=== PATIENT | male | born 1950 | race Caucasian/White ===

== ENCOUNTER 2019-04-26 12:07 | Inpatient (IN) ==
[2019-04-26] MEDS ORDERED: MORPHINE IV ONE ×2 (12:35→13:30)
--- NOTE | 2019-04-26 12:53 | PROVIDER DOCUMENTATION ---
HPI-Musculoskeletal Pain/Inj - GENERAL Chief Complaint: Hip Injury Stated Complaint: FALL Time Seen by Provider: 04/26/19 12:21 Source: patient - HX OF PRESENT ILLNESS-MUSKULOSKELTAL Nature of Presenting Problem: 68 yr old M, hx of HTN, presents after a fall off of a ladder - missed two rungs, landed on his left hip. Is currently unable to lift or move the left extremity due to pain. Pt denies LOC or striking any other part of his body on the ground. Quality of Pain: reports: sharp Severity in ED: severe Onset/Duration: 1 hour ago Timing: still present Locality of Occurance: Work Review of Systems - Adult - REVIEW OF SYSTEMS - ADULT Constitutional: reports: no symptoms reported Eyes: reports: no symptoms reported Ears, Nose, Mouth & Throat: reports: no symptoms reported Cardiovascular: reports: no symptoms reported Respiratory: reports: no symptoms reported Gastrointestinal: reports: no symptoms reported Genitourinary: reports: no symptoms reported Musculoskeletal: reports: joint pain Integumentary: reports: no symptoms reported Neurological: reports: no symptoms reported Psychiatric: reports: no symptoms reported Past History - Adult - PAST MEDICAL HISTORY-ADULT Review of Records: reports: Nursing Assessment Review Major Childhood Illnesses: reports: denies history Cardiovascular: reports: HTN, hyperlipidemia Respiratory: reports: denies history Gastrointestinal: reports: denies history Obstetrical/Gynecological: reports: denies history Genitourinary: reports: denies history Musculoskeletal: reports: denies history Neurological: reports: denies history Endocrine/Immune: reports: denies history Other Conditions: reports: denies history - PRIOR SURGERIES/PROCEDURES Surgical/Procedure History: reports: orthopedic (extremity) (right knee, pelvic fracture) - IMMUNIZATION STATUS Childhood Immunizations: See Nurse Assessment Flu Vaccine: See Nurse Assessment - FAMILY HISTORY Family History: reviewed, not pertinent Physical Exam-Injury Related - Physical Exam-Injury Related Initial Vital Signs Reviewed: Yes General Appearance: alert, mild distress Eyes: PERRL/EOMI Head, Ears, Nose, Mouth & Throat: normocephalic/atraumatic Respiratory: lungs clear, normal breath sounds Cardiovascular: regular rate, rhythm Extremity: other (no obvious deformity, wound or abrasion of the left lower extremity noted, pt is tender upon palpation of the hip and the knee) Integumentary: warm/dry Neurologic: no motor/sensory deficits Psych/Mental Status: normal mood/affect, oriented x 3 - Glascow Coma Score Best Eye Response ([place]): (4) open spontaneously Best Verbal Response ([place]): (5) oriented Best Motor Response ([place]): (6) obeys commands Progress - PLAN OF CARE/RESULTS Progress/Plan/Lab Results: Vital Signs - 8 hr 04/26/19 12:22 04/26/19 12:28 04/26/19 14:03 Temperature 97.8 F Pulse Rate 73 72 84 Respiratory Rate 22 24 18 Blood Pressure 138/77 138/77 131/74 O2 Sat by Pulse Oximetry 100 100 100 04/26/19 14:39 04/26/19 15:02 Temperature Pulse Rate 78 71 Respiratory Rate 15 17 Blood Pressure 131/74 111/57 O2 Sat by Pulse Oximetry 98 96 Laboratory Results - last 24 hr 04/26/19 04/26/19 04/26/19 13:36 13:36 13:36 WBC 15.53 H RBC 4.97 Hgb 13.9 L Hct 42.4 MCV 85.3 MCH 28.0 MCHC 32.8 L RDW Std Deviation 13.9 Plt Count 253 MPV 10.6 H Immature Gran % (Auto) 0.4 Neut % (Auto) 80.2 H Lymph % (Auto) 14.1 L [place] % (Auto) 4.9 Eos % (Auto) 0.2 Baso % (Auto) 0.2 Immature Gran # (Auto) 0.06 H Neut # (Auto) 12.46 H Lymph # (Auto) 2.19 [place] # (Auto) 0.76 H Eos # (Auto) 0.03 Baso # (Auto) 0.03 PT INR PTT (Actin FS) Sodium 135 L Potassium 3.8 Chloride 97 L Carbon Dioxide 21 L Anion Gap 17 BUN 18 Creatinine 1.1 Estimated GFR/1.73 m2 > 60 BUN/Creatinine Ratio 16 Glucose 107 H Calculated Osmolality 272 Calcium 9.1 Total Bilirubin 0.50 AST 21 ALT 16 Alkaline Phosphatase 86 Creatine Kinase 153 Troponin T Total Protein 7.8 Albumin 4.5 Globulin 3.3 Albumin/Globulin Ratio 1.4 04/26/19 04/26/19 04/26/19 13:36 13:36 13:36 WBC RBC Hgb Hct MCV MCH MCHC RDW Std Deviation Plt Count MPV Immature Gran % (Auto) Neut % (Auto) Lymph % (Auto) [place] % (Auto) Eos % (Auto) Baso % (Auto) Immature Gran # (Auto) Neut # (Auto) Lymph # (Auto) [place] # (Auto) Eos # (Auto) Baso # (Auto) PT 13.1 INR 0.98 PTT (Actin FS) 28.8 Sodium Potassium Chloride Carbon Dioxide Anion Gap BUN Creatinine Estimated GFR/1.73 m2 BUN/Creatinine Ratio Glucose Calculated Osmolality Calcium Total Bilirubin AST ALT Alkaline Phosphatase Creatine Kinase Troponin T < 0.010 Total Protein Albumin Globulin Albumin/Globulin Ratio Orders Category Date Time Status CT PELVIS W/O CONTRAST [CT] Stat Exams 04/26/19 12:38 Completed HIP W/PELVIS BILAT 2 VIEWS [RAD] Stat Exams 04/26/19 12:34 Completed KNEE 3 VIEWS LEFT [RAD] Stat Exams 04/26/19 12:38 Completed CBC WITH ELECTRONIC DIFF [HEME] Stat Lab 04/26/19 13:36 Completed CK PROFILE [SP CHEM] Stat Lab 04/26/19 13:36 Completed CMP [COMPREHENSIVE METABOLIC PANEL] [CHEM] Stat Lab 04/26/19 13:36 Completed PROTIME WITH INR [COAG] Stat Lab 04/26/19 13:36 Completed PTT [COAG] Stat Lab 04/26/19 13:36 Completed TROPONIN T Stat Lab 04/26/19 13:36 Completed Hydromorphone [Dilaudid] Med 04/26/19 15:28 Discontinued 2 mg IV NOW ONE Morphine Med 04/26/19 13:30 Discontinued 4 mg IV NOW ONE X-Ray and CT confirm displaced subcapital femoral neck fracture. Spoke with ANTOLIN Fall with Dr. Shah. Will consult on the pt; admit to hospitalist. Spoke to ANTOLIN Montalvo for hospitalist for admission. Pt and family made aware at bedside. Result Diagrams: 04/26/19 13:36 04/26/19 13:36 - XRAY 1 XRAY Study: Pelvis, Hip Impression: See EMR Report XRAY Interpretation: left subcapital femoral neck fracture, minimally displaced - CT/MRI 1 CT Study: Pelvis (left subcapital fracture of femoral neck) Impression: See EMR Report - CONSULTS/PCP/HOSPITALIST Notification #1 *Consult/PCP/Hospitalist*: Katia Time Discussed: 15:00 Consult Disposition: Admit Departure - Departure Date of Disposition Decision: 04/26/19 Time of Disposition Decision: 15:27 DIAGNOSIS: Left displaced femoral neck fracture Disposition: ADMITTED INPATIENT 09 Certified Medical Emergency: Emergent Condition: Fair Referrals and Follow-Ups: Mendoza Anderson MD [ACTIVE STAFF PHYSICIAN] - - Critical Care Note This patient required my direct & personal management of CC.: No Attestation - Physician/ AARON Attestation Patient care was provided by Advanced Practice Provider:: No The physician spent face to face time with patient:: Yes Advanced Practice Provider documentation review:: Supervising physician onsite and consulted in the evaluation and care of this patient. The physician did have a face to face encounter with the patient.
--- NOTE | 2019-04-26 13:05 | Diag Imaging Result Doc PS360 ---
KNEE 3 VIEWS LEFT - 04/26/2019 INDICATION: trauma TECHNIQUE: Three views COMPARISON: None FINDINGS: Bones are intact and normally aligned. Joint spaces and soft tissues are clear. IMPRESSION: Negative exam. Electronically signed by Jayy Hewitt 04/26/2019 1:03 PM
--- NOTE | 2019-04-26 13:07 | Diag Imaging Result Doc PS360 ---
HIP W/PELVIS BILAT 2 VIEWS - 04/26/2019 INDICATION: hip trauma TECHNIQUE: Three views COMPARISON: None FINDINGS: There is a minimally displaced subcapital left femoral neck fracture. No dislocation. The right hip is intact, although there is contour expansion of the superior proximal femur which may relate to cam-type femoral acetabular impingement. There is a fusion plate at the symphysis pubis. IMPRESSION: Displaced subcapital left femoral neck fracture. Electronically signed by Jayy Hewitt 04/26/2019 1:05 PM
--- NOTE | 2019-04-26 13:23 | Diag Imaging Result Doc PS360 ---
CT PELVIS W/O CONTRAST - 04/26/2019 INDICATION: trauma COMPARISON: X-rays from earlier FINDINGS: There is a displaced subcapital left hip fracture. No other fractures. There is a fusion plate at the symphysis pubis. Mild degeneration of the sacroiliac joints. IMPRESSION: Displaced subcapital left hip fracture. This exam was performed using automated exposure control, adjustment of mA or kV according to patient size, and/or use of iterative reconstruction technique Electronically signed by Jayy Hewitt 04/26/2019 1:21 PM
[2019-04-26 14:11] LABS: BASO# 0.03 X1000 (0.0-0.2); BASO% 0.2 % (0.0-0.8); EOS# 0.03 X1000 (0.0-0.7); EOS% 0.2 % (0.0-10.0); HEMATOCRIT 42.4 % (42.0-52.0); HEMOGLOBIN 13.9 g/dL (14.0-18.0); IMM GRAN# 0.06 X1000 (0.0-0.04); IMM GRAN% 0.4 % (0.0-0.5); LYMPH# 2.19 X1000 (1.2-3.4); LYMPH% 14.1 % (20.5-51.1); MCHC 32.8 g/dL (33-37); MCV 85.3 FL (81-99); MONO# 0.76 X1000 (0.11-0.59); MONO% 4.9 % (1.7-9.3); MPV 10.6 FL (7.4-10.4); NEUT# 12.46 X1000 (1.4-6.5); NEUT% 80.2 % (42.2-75.2); PLT 253 X1000 (130-400); RBC 4.97 XMIL (4.7-6.1); RDW 13.9 % (11.5-14.5); WBC 15.53 X1000 (4.8-10.8)
[2019-04-26 14:14] LABS: INR 0.98; PROTIME 13.1 Seconds (11.0-16.0)
[2019-04-26 14:26] LABS: AGAP 17; ALB/GLOB RATIO 1.4; ALBUMIN 4.5 g/dL (3.5-5.0); ALKALINE PHOSPHATASE 86 U/L (32-122); BUN 18 mg/dL (8-22); CALCIUM 9.1 mg/dL (8.8-10.2); CHLORIDE 97 mmol/L (98-107); COSMO 272; CREATININE 1.1 mg/dL (0.7-1.2); ESTIMATED GFR > 60; GLUCOSE 107 mg/dL (70-104); GOT 21 U/L (10-34); GPT 16 U/L (10-44); POTASSIUM 3.8 mmol/L (3.5-5.1); SODIUM 135 mmol/L (136-145); TCO2 21 mmol/L (25-35); TOTAL PROTEIN 7.8 g/dL (6.3-8.3)
[2019-04-26] MEDS ORDERED: DILAUDID IV ONE (15:28)
[2019-04-26] MEDS ORDERED: ZOFRAN IV PRN (16:34)
[2019-04-26] MEDS ORDERED: TYLENOL PO PRN (16:34)
--- NOTE | 2019-04-26 16:59 | Diag Imaging Result Doc PS360 ---
EXAM: CHEST-PORTABLE HISTORY: r/o pna TECHNIQUE: Chest single view COMPARISON: 04/01/2018 FINDINGS: The lungs are well expanded. The heart is not enlarged. The vessels are not distended. There are no infiltrates. No effusion identified. IMPRESSION: No pneumonia Electronically signed by Reagan Díaz 04/26/2019 4:57 PM
[2019-04-26] MEDS: DILAUDID IV PRN ×3 (17:22→23:29)
[2019-04-26 17:23] LABS: URINE SOURCE CATH
[2019-04-26 17:26] LABS: BILIRUBIN URINE NEGATIVE (NEGATIVE); BLOOD URINE NEGATIVE (NEGATIVE); COLOR YELLOW; GLUCOSE URINE NEGATIVE (NEGATIVE); KETONE URINE 20 mg/dL (NEGATIVE); LEUKOCYTES URINE NEGATIVE (NEGATIVE); NITRITE URINE NEGATIVE (NEGATIVE); PROTEIN URINE NEGATIVE (NEGATIVE); SP GRAVITY URINE 1.014; TURBIDITY URINE CLEAR (CLEAR); UR EPITHELIAL CELLS <10 /HPF (<10); URINE BACTERIA NEGATIVE /HPF; URINE RBC <10 /HPF (<10); URINE WBC <10 /HPF (<10); UROBILINOGEN URINE NORMAL (NORMAL)
[2019-04-26] MEDS: NS 1,000 ML IV SCH (18:42)
--- NOTE | 2019-04-26 19:04 | ORTHOPAEDICS CONSULTATION ---
DATE: 04/26/2019 REASON FOR CONSULTATION: Left displaced femoral neck fracture. HISTORY OF PRESENT ILLNESS: The patient was at work today and he fell off a ladder after he missed the last 2 rungs. He fell on his left hip and had complaints of pain in that area since. He denies any other injuries from the fall. He was evaluated in the Emergency Room where imaging and labs were obtained. We were consulted due to findings of a displaced femoral neck fracture. 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 The plate in his pelvis is from a fracture in 1995 and became infected last year. No surgical intervention was needed for the infection but he does take Keflex b.i.d. per Infectious Disease for an indefinite period. PAST SURGICAL HISTORY: Repair of pelvic fracture in 1995, cervical fusion in 2017, and knee arthroscope in 2015. SOCIAL HISTORY: None. MEDICATIONS: 1. Vasotec 10 mg daily. 2. HCTZ 25 mg daily. 3. Pravastatin 20 mg q.h.s.. 4. Keflex 500 mg q.12h. REVIEW OF SYSTEMS: The patient specifically denied any weakness, fever. 1. Cardiovascular: He denies any chest pain or heart palpitations. 2. Respiratory: He denies any shortness of breath or difficulty breathing. 3. Abdomen: He denies any constipation or abdominal pain. 4. Musculoskeletal: Positive for left hip pain. Denies any other joint pain. 5. Integumentary: He denies any rashes or wounds. 6. Mental Health: He denies any anxiety or depression. PHYSICAL EXAMINATION: GENERAL: The patient is resting comfortably in bed at this time. His family is at bedside. EXTREMITIES: He has tenderness to palpation over his left hip, though there is no obvious deformity. There is no bruising noted. There is no swelling appreciated. The patient's calves are soft. He does have full range of motion of his feet and toes. Sensation is intact distally to his injury. He is neurovascularly intact. IMAGING: X-rays were obtained in the ER and revealed a left displaced femoral neck fracture. He also had a CT done, which revealed a displaced, subcapital left hip fracture. LABORATORY DATA: Significant for WBC of 15.5, hemoglobin and hematocrit within normal limits at 13 and 42 respectively. Creatinine is 1.1. ASSESSMENT: A left displaced femoral neck fracture. PLAN: We will do a left hemiarthroplasty once the patient is medically cleared. We will allow him to eat tonight and we will plan on taking him to surgery when available. Risks and benefits were explained by Dr. Shah with both the patient and his family at bedside. All questions were answered. Dictated by KUSHAL Kat for Elijah Shah MD cc: Elijah Shah MD [facility]
[2019-04-26] MEDS: PRAVACHOL PO SCH (20:25)
[2019-04-26] MEDS ORDERED: KEFLEX PO SCH (21:00)
--- NOTE | 2019-04-27 02:05 | HISTORY AND PHYSICAL ---
PRIMARY CARE PROVIDER: Edmar Denis DO CHIEF COMPLAINT: Fall with left hip pain. HISTORY OF PRESENT ILLNESS: Mr. Franky Kuo is a 68-year-old male with a medical history of hypertension, dyslipidemia, chronic neck pain and scrotal cellulitis that he is on cephalexin for life, who is here after a 2 foot fall from a ladder where he missed a step. He landed on his left hip, imaging reveals that he has a displaced subcapital left hip fracture, and orthopedic surgery has been consulted. Past surgical history. PAST MEDICAL HISTORY: 1. Hypertension. 2. Dyslipidemia. 3. Chronic neck pain. 4. Scrotal cellulitis that is resolved, but will be on cephalexin for the rest of his life. SURGICAL HISTORY: 1. Right knee surgery that was scoped. 2. Neck surgery. 3. Pelvic fracture with plate in the past. SOCIAL HISTORY: Chews 1 can of tobacco a day. No smoking. Denies alcohol or illicit drug use. is at the bedside. He works for [employer]. FAMILY HISTORY: The patient's mother had hypertension and CAD. The patient's father of an MO at the age of 74, he also had hypertension. ALLERGIES: Latex. HOME MEDICATIONS: 1. He is on cephalexin 500 mg p.o. twice daily for life. 2. Enalapril-hydrochlorothiazide 10-25 one tablet p.o. daily. 3. Pravastatin 20 mg p.o. nightly. REVIEW OF SYSTEMS: Fourteen point review of systems are complete and all were negative except for those mentioned above in the HPI. PHYSICAL EXAMINATION: VITAL SIGNS: Temperature 97.8 degrees, heart rate 71, respiratory rate 17, blood pressure 111/57, O2 saturation 96% on room air. GENERAL: Mr. Franky Kuo is a 68-year-old male. He is in mild acute distress with that left hip pain that is causing severe pain, but he is able answer questions appropriately. HEENT: Atraumatic, normocephalic. Pupils are equal, round and reactive to light. Extraocular movements intact. Mucous membranes are dry. NECK: Trachea is midline. CARDIOVASCULAR: S1, S2. Regular rate and rhythm. No rubs, gallops or murmurs. No lower extremity edema. Plus 2 dorsalis and radial pulses. Negative JVD or carotid bruits. PULMONARY: Clear to auscultation. Bilateral breath sounds. No accessory muscle use or work of breathing noted. GI: Soft, nontender, nondistended. Positive bowel sounds x4. EXTREMITIES: Moves extremities equally except for the left lower extremity, which he is unable to move at all and it is rotated. NEUROLOGIC: A and O x3. Follows commands. Sensory is intact. SKIN: Warm, dry, intact. LABORATORY DATA: White blood cell is 15,000, hemoglobin 13, hematocrit 42, platelet count 253,000, INR 0.98, PTT is 28.8. Sodium 135, potassium 3.8, BUN 18, creatinine 2.1, glucose 107, calcium 9.1, bilirubin 0.50, AST 21, ALT 16, CK 153, troponin less than 0.01, albumin 4.5. Urinalysis 20 ketones. IMAGING: Hip and pelvic x-ray, displaced subcapital left femoral neck fracture. Pelvic CT, displaced subcapital left hip fracture. Knee x-ray negative exam. Chest x-ray no pneumonia. ASSESSMENT AND PLAN: 1. Displaced subcapital left femoral neck fracture status post traumatic fall. Dr. Shah has been consulted. The ER physicians states they spoke with him, will keep him n.p.o. for now. Dilaudid for pain control. 2. Hypertension. We will continue the enalapril-hydrochlorothiazide. 3. Dyslipidemia. Continue the pravastatin. 4. History of scrotal cellulitis, and currently has leukocytosis. He is on cephalexin 500 mg p.o. twice a day for life and we will continue that. Was followed by Dr. Anderson. 5. Deep venous thrombosis prophylaxis will be started as soon as he is out of surgery. Dictated by KUSHAL Knutson for Jasvir Trujillo MD cc: KUSHAL Knutson MD
[2019-04-27] MEDS: DILAUDID IV PRN ×5 (03:11→21:26)
[2019-04-27] MEDS: NS 1,000 ML IV SCH ×3 (05:11→15:47)
[2019-04-27 06:13] LABS: BASO# 0.02 X1000 (0.0-0.2); BASO% 0.2 % (0.0-0.8); EOS# 0.19 X1000 (0.0-0.7); EOS% 1.7 % (0.0-10.0); HEMATOCRIT 40.3 % (42.0-52.0); LYMPH# 1.96 X1000 (1.2-3.4); MCH 28.3 PG (27-31); MCHC 32.3 g/dL (33-37); MCV 87.6 FL (81-99); MONO# 0.72 X1000 (0.11-0.59); MONO% 6.6 % (1.7-9.3); MPV 10.4 FL (7.4-10.4); NEUT# 8.02 X1000 (1.4-6.5); NEUT% 73.5 % (42.2-75.2); PLT 210 X1000 (130-400); RDW 14.3 % (11.5-14.5); WBC 10.91 X1000 (4.8-10.8)
[2019-04-27 06:20] LABS: INR 1.18; PROTIME 15.2 Seconds (11.0-16.0)
[2019-04-27 06:21] LABS: PTT 34.1 Seconds (22.3-41.8)
[2019-04-27 06:36] LABS: AGAP 10; ALB/GLOB RATIO 1.2; ALBUMIN 3.7 g/dL (3.5-5.0); ALKALINE PHOSPHATASE 72 U/L (32-122); BUN 15 mg/dL (8-22); CALCIUM 8.4 mg/dL (8.8-10.2); CHLORIDE 102 mmol/L (98-107); COSMO 276; CREATININE 0.9 mg/dL (0.7-1.2); ESTIMATED GFR > 60; GLUCOSE 93 mg/dL (70-104); GOT 21 U/L (10-34); GPT 12 U/L (10-44); MAGNESIUM 1.4 mg/dL (1.5-2.7); SODIUM 138 mmol/L (136-145); TCO2 26 mmol/L (25-35); TOTAL BILIRUBIN 0.61 mg/dL (0.20-1.00); TOTAL PROTEIN 6.7 g/dL (6.3-8.3)
--- NOTE | 2019-04-27 07:24 | HISTORY AND PHYSICAL ---
ADDENDUM: I have seen and examined Mr. Kuo today. was at the bedside at the time of the encounter. Mr. Kuo presented to the ER today after he sustained a fall at work from a misstep coming down on a ladder. Hit on the concrete, was not able to get up, was brought into the emergency room. Was evaluated. X-ray of the pelvis suggests a displaced subcapital left femoral neck fracture. Mr. Kuo's past medical history includes hypertension, dyslipidemia, and cellulitis with an infection to a fusion plate at the symphysis pubis for which he is chronically on Keflex. He is currently denying any chest pain. No shortness of breath. He does not smoke. No history of diabetes and he is not on any blood thinner. His current physical exam is unremarkable except for the findings on the left lower extremity that is rotated and remarkably painful on exploration. I have reviewed his labs and also imaging studies. ASSESSMENT: 1. Status post mechanical fall resulting into a left subcapital displaced femoral neck fracture. The patient has been has been evaluated by orthopedics and there is a plan for a left hip arthroplasty tomorrow. 2. Hypertension controlled. 3. Dyslipidemia. 4. 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 PERIOPERATIVE EVALUATION: Mr. Kuo is a 68-year-old male whose only chronic medical condition is hypertension and dyslipidemia. Denies any acute disorder. Denies any chest pains or any shortness of breath. No signs of congestive heart failure and he is not on any chronic anticoagulation. He is pretty functional at baseline. He has sustained a left hip fracture and he is going for a total hemiarthroplasty tomorrow. We think Mr. Kuo is a low- to-moderate risk patient for a moderate nonvascular surgery. We think the surgery is very necessary to maintain functionality and we recommend surgery to proceed. Please refer to the details of the H and P which has been dictated by the CAR WRECKER in the chart. cc: Jasvir Trujillo MD
--- NOTE | 2019-04-27 08:33 | EKG Report ---
Test Performed on : 04/27/2019 08:02:44 AM Test Reason : preop Blood Pressure : / mmHG Vent. Rate : 062 BPM Atrial Rate : 062 BPM P-R Int : 158 ms QRS Dur : 096 ms QT Int : 402 ms P-R-T Axes : 060 057 032 degrees QTc Int : 408 ms Normal sinus rhythm. Normal ECG When compared with ECG of 28-FEB-2018 18:21, No significant change was found Confirmed by Hipolito Sunshine MD ([id number]) on 04/28/2019 7:44:25 AM
[2019-04-27] MEDS ORDERED: KEFZOL 1 GM/D5W 1 GM/50 ML IVPB IV ONE (09:04)
[2019-04-27] MEDS ORDERED: FLU VACCINE IM ONE (09:20)
[2019-04-27] MEDS: HYDROCHLOROTHIAZIDE PO SCH (09:38)
[2019-04-27] MEDS: VASOTEC PO SCH (09:38)
[2019-04-27] MEDS ORDERED: DIPRIVAN 1% ONE ×2 (11:18→12:19)
[2019-04-27] MEDS ORDERED: FENTANYL ONE ×2 (11:18→11:24)
[2019-04-27] MEDS ORDERED: ZOFRAN ONE (11:19)
[2019-04-27] MEDS ORDERED: DECADRON ONE (11:19)
[2019-04-27] MEDS ORDERED: XYLOCAINE-MPF 2% ONE (11:19)
--- NOTE | 2019-04-27 11:59 | ORTHOPAEDICS PROGRESS NOTE ---
DATE: 04/27/2019 SUBJECTIVE: The patient is a pleasant, 68-year-old male who is 1 day status post fall sustaining a left displaced femoral neck fracture. He has been in the hospital. Orthopedic consultation was requested. After reviewing films, recommendation to proceed with arthroplasty was offered. Orthopedic consultation requested. PHYSICAL EXAMINATION: Patient is awake, alert, and cooperative with examination. It appears left lower extremity is shortened and somewhat externally rotated. His compartments were soft. Expected tenderness to palpation. Tenderness with gentle movement. Active dorsiflexion plantar flexion. His WBC is 10.91, down from 15.53 on admission. His hemoglobin is 13.0. Hematocrit is 40.3. IMPRESSION: Left displaced femoral neck fracture. PLAN: At this point, discussed treatment options with the patient. At this time, we will plan on proceeding with surgical management later today. Risks of surgery were explained, including the risks of anesthesia, , bleeding, infection, failure to relieve pain, postop stiffness, nerve injury, blood clots, and other imponderables. Of note the patient does report he is on chronic p.o. Keflex for previous infections from pubic symphysis fixation. Patient did discuss the potential for increased possibility of infection given his history of previous infection from his pelvic surgery requiring chronic p.o. antibiotics. They understand. All of their questions were answered. cc: Elijah Shah MD
[2019-04-27] MEDS ORDERED: VERSED ONE (12:01)
[2019-04-27] MEDS ORDERED: SODIUM CHLORIDE 0.9% 10 ML ONE (12:10)
[2019-04-27] MEDS ORDERED: EPHEDRINE ONE (12:10)
[2019-04-27] MEDS ORDERED: NEO-SYNEPHRINE ONE (12:10)
[2019-04-27] MEDS ORDERED: ROBINUL ONE (12:25)
[2019-04-27] MEDS ORDERED: MAGNESIUM SULFATE 2 GM/S.W.I. 2 GM/50 ML IVPB IV ONE (12:27)
[2019-04-27] MEDS ORDERED: MORPHINE IV PRN (13:32)
[2019-04-27] MEDS ORDERED: ZOFRAN IV PRN (13:32)
[2019-04-27] MEDS ORDERED: MILK OF MAGNESIA PO PRN (13:32)
[2019-04-27] MEDS ORDERED: NS 1,000 ML ONE (13:36)
[2019-04-27] MEDS ORDERED: HALDOL IV PRN (13:45)
--- NOTE | 2019-04-27 13:52 | Diag Imaging Result Doc PS360 ---
XRAY HIP UNILATERAL LT - 04/27/2019 INDICATION: AP,lateral,pt in pacu TECHNIQUE: Two views COMPARISON: 04/26/2019 FINDINGS: There is been placement of a left femoral head prosthesis in good position. No hardware fracture or loosening. Alignment is anatomic. IMPRESSION: No complication. Electronically signed by Jayy Hewitt 04/27/2019 1:50 PM
--- NOTE | 2019-04-27 15:17 | OPERATIVE NOTE ---
PROCEDURE DATE: 04/27/2019 PREOPERATIVE DIAGNOSIS: Left displaced femoral neck fracture. POSTOPERATIVE DIAGNOSIS: Left displaced femoral neck fracture. PROCEDURE: Hemiarthroplasty left hip with a size 7 high-offset DePuy Actis press-fit stem with a 28+ 1.5 femoral head and a 51 bipolar head. SURGEON: Dr. Elijah Shah. SENIOR CONSUMER INSIGHTS CONSULTANT: KUSHAL Hough, who was necessary for proper positioning, retraction and manipulation of the extremity during the case. SECOND STREETCAR CONDUCTOR: Ruel Lugo RN. ANESTHESIA: Spinal. IV FLUIDS: 1800 mL lactated Ringer. ESTIMATED BLOOD LOSS: 50 mL. COMPLICATIONS: None. INDICATION: The patient is a pleasant, 68-year-old male is 1 day status post fall, sustaining a left displaced femoral neck fracture. He was admitted to the hospital last evening and after x- rays were reviewed and recommendation to proceed with hemiarthroplasty of the left hip with offered. Risks and benefits of surgery were explained, including the risks of anesthesia, , bleeding, infection, failure to relieve pain, postoperative stiffness, nerve injury, blood clots, and other imponderables. All questions were answered. Patient and family wished to proceed with surgery. DETAILS OF OPERATION: The patient was taken to the operating room, underwent spinal anesthesia. After adequate anesthesia was obtained, the patient was placed in a right lateral decubitus position on a morales bag with an axillary roll. The left hip was subsequently prepped and draped in usual sterile fashion. A standard posterior approach to the hip was performed. Hemostasis was obtained using electrocautery. The gluteus louisa with the fascia ga was incised longitudinally with the incision. A Charnley retractor was then placed. The piriformis tendon was then identified and a stay suture was placed. The piriformis tendon along with the short external rotators released and retracted posteriorly. A T-shaped capsulotomy was then performed and stay sutures placed along the capsule. The fracture site was identified. Corkscrew was then placed in the femoral head approximately 1 fingerbreadth proximal to the lesser trochanter, the femoral neck was fully surgically resected. After this had been performed, the head was easily removed. A starting impactor was placed in the intramedullary canal followed by followed by a starting reamer. After this had been performed, sequential broaching was then performed up to a size 6 broach and was countersunk. Calcar reaming was then conducted. A size 7 broach was then impacted and had good fit. Trial femoral neck and head lengths were trialed and the 28+ 1.5 femoral head with a 51 bipolar head and high-offset neck had excellent stability and range of motion. The trial was then removed. Copious irrigation was then performed with pulsatile lavage. After this had been performed, the posterior capsule was repaired with #1 Vicryl. This was followed by repair the piriformis tendon with #1 Vicryl. The wound was copiously irrigated once again and the Charnley retractor was then removed. Number 1 Vicryl was then used to repair the fascia ga and gluteus louisa in a running fashion. Final irrigation was then performed. This was followed by 2-0 Vicryl and skin marly. Adaptic, sterile 4 x 4, ABD pad, and tape was applied left hip. The patient tolerated the procedure well, was transferred to the recovery room in stable condition. cc: Elijah Shah MD MTDD
[2019-04-27] MEDS: TYLENOL PO SCH ×2 (15:41→21:20)
--- NOTE | 2019-04-27 16:19 | PROGRESS NOTE ---
DATE: 04/27/2019 SUBJECTIVE: This patient just came back from surgery. He had a left hemiarthroplasty of the hip. He seems to be stable. He is complaining of pain. OBJECTIVE: Vital Signs: Temperature 99.1 degrees, pulse 71, respiratory rate 18,blood pressure 148/69 oxygen saturation 98 on nasal cannula. HEENT: Head normocephalic, no trauma. PERRLA. Neck: Supple. No JVD. No masses. Central trachea. Chest: Clear to auscultation. No wheezing. No rales. Abdomen: Soft, nontender, nondistended. No hepatosplenomegaly. Extremities: Left hip pain. He has a dressing at the level of the left hip that looks clean, dry, and intact. Neurological: The patient is alert he is oriented. He is oriented x3. He is able to move all the toes. I do not see any neurovascular lesion. LABORATORY: WBC 10.9, hemoglobin 13, hematocrit 40.3, platelets 210,000. Sodium 138, potassium 4, chloride 102, bicarbonate 26, BUN 15, creatinine 0.9 glucose 93, calcium 8.4, magnesium 1.4. AST 21, ALT 12, alkaline phosphatase 72, albumin 3.7. ASSESSMENT AND PLAN: 1. Left subcapital femoral neck fracture status post left hemiarthroplasty done today. He seems to be tolerating well the procedure. No neurovascular lesion. Orthopedic surgery department following this patient closely. Likely this patient will need to go to a rehabilitation center and start doing physical therapy in house. He has been placed on pain medication and anticoagulation. 2. Hypomagnesemia. I will replace the magnesium. 3. Hypertension. We will continue with home medications, stable. 4. Dyslipidemia continue with pravastatin. 5. History of scrotal cellulitis. Currently, he has leukocytosis. It looks like he is on cephalexin 500 mg p.o. twice a day for life. I will continue with that, but right now he is on cefazolin. 6. Deep vein thrombosis prophylaxis with Xarelto on a 10 mg on a daily basis. 7. The patient denies chest pain, shortness of breath. Family members at the bedside. All the questions were answered. cc: Willian Church MD
[2019-04-27] MEDS: KEFZOL 1 GM/D5W 1 GM/50 ML IVPB IV SCH (18:38)
[2019-04-27] MEDS: PRAVACHOL PO SCH (21:20)
[2019-04-27] MEDS: PERIDEX MT SCH (21:21)
[2019-04-27] MEDS: COLACE PO SCH (21:21)
[2019-04-28] MEDS: NS 1,000 ML IV SCH ×2 (04:21→13:55)
[2019-04-28] MEDS: KEFZOL 1 GM/D5W 1 GM/50 ML IVPB IV SCH ×2 (04:22→10:58)
[2019-04-28] MEDS: DILAUDID IV PRN ×3 (04:26→23:28)
[2019-04-28] MEDS: XARELTO PO SCH (05:49)
[2019-04-28] MEDS: TYLENOL PO SCH ×3 (05:49→20:47)
[2019-04-28 06:55] LABS: BASO# 0.02 X1000 (0.0-0.2); BASO% 0.2 % (0.0-0.8); EOS# 0.15 X1000 (0.0-0.7); EOS% 1.7 % (0.0-10.0); HEMATOCRIT 36.8 % (42.0-52.0); HEMOGLOBIN 11.7 g/dL (14.0-18.0); LYMPH# 1.01 X1000 (1.2-3.4); LYMPH% 11.7 % (20.5-51.1); MCH 28.4 PG (27-31); MCHC 31.8 g/dL (33-37); MCV 89.3 FL (81-99); MONO# 0.58 X1000 (0.11-0.59); MONO% 6.7 % (1.7-9.3); MPV 10.9 FL (7.4-10.4); NEUT# 6.84 X1000 (1.4-6.5); NEUT% 79.7 % (42.2-75.2); PLT 173 X1000 (130-400); RBC 4.12 XMIL (4.7-6.1); RDW 14.1 % (11.5-14.5)
[2019-04-28 07:03] LABS: AGAP 9; ALBUMIN 3.1 g/dL (3.5-5.0); ALKALINE PHOSPHATASE 63 U/L (32-122); BUN 10 mg/dL (8-22); CALCIUM 7.8 mg/dL (8.8-10.2); CHLORIDE 101 mmol/L (98-107); COSMO 271; ESTIMATED GFR > 60; GLUCOSE 101 mg/dL (70-104); GOT 34 U/L (10-34); GPT 11 U/L (10-44); MAGNESIUM 1.8 mg/dL (1.5-2.7); POTASSIUM 3.4 mmol/L (3.5-5.1); SODIUM 136 mmol/L (136-145); TCO2 26 mmol/L (25-35); TOTAL BILIRUBIN 0.73 mg/dL (0.20-1.00); TOTAL PROTEIN 6.1 g/dL (6.3-8.3)
[2019-04-28] MEDS: FERROUS SULFATE PO SCH (08:55)
[2019-04-28] MEDS: PERIDEX MT SCH ×2 (08:55→22:58)
[2019-04-28] MEDS: VASOTEC PO SCH ×2 (08:55→13:08)
[2019-04-28] MEDS: HYDROCHLOROTHIAZIDE PO SCH ×2 (08:55→13:08)
--- NOTE | 2019-04-28 09:36 | ORTHOPAEDICS PROGRESS NOTE ---
DATE: 04/28/2019 SUBJECTIVE: The patient is a pleasant, 68-year-old male who is 1 day status post hemiarthroplasty of the left hip. Patient is currently resting comfortably. PHYSICAL EXAMINATION: His left lower extremity dressing is intact. His calf is soft. He has active dorsiflexion, plantar flexion. He is neurovascularly intact distally. LABORATORY DATA: His labs are pending. IMPRESSION: Postoperative day #1 status post hemiarthroplasty left hip. PLAN: At this point, will begin mobilization, physical therapy with weightbearing as tolerated on left lower extremity. [employer] have been consulted for discharge planning. We will change his dressing tomorrow. cc: Elijah Shah MD
[2019-04-28] MEDS ORDERED: KLOR-CON PO ONE (09:38)
[2019-04-28] MEDS: KEFLEX PO SCH ×2 (10:05→20:46)
--- NOTE | 2019-04-28 12:45 | PROGRESS NOTE ---
DATE: 04/28/2019 SUBJECTIVE: This patient is status post left hemiarthroplasty due to left subcapital femoral neck fracture, postoperative day #1. He seems to be doing better. Orthopedic Surgery already evaluated this patient today. They will change the dressing tomorrow. He is a little bit hypokalemic, and I will replace the potassium. Vital signs and lab work seem to be stable. OBJECTIVE: Vital Signs: Temperature 99.8 degrees, pulse 87, respiratory rate 16, blood pressure 163/66, oxygen saturation 98 on room air. HEENT: Head normocephalic. No trauma. PERRLA. Neck: Supple. No JVD. No masses. Central trachea. Chest: Clear to auscultation. No wheezing. No rales. Abdomen: Soft, nontender, nondistended. No hepatosplenomegaly. Extremities: Left hip pain. He has a dressing at the level of the left hip that has a little bit of serous discharge. No signs of infection. Neurological: The patient is awake, alert. He is oriented x3. He was sitting at the bedside upon my evaluation. LABORATORY DATA: WBC 8.6, hemoglobin 11.7, hematocrit 36.8, platelets 173,000. Sodium 136, potassium 3.4, chloride 101, bicarbonate 26, BUN 10, creatinine 1, glucose 101, calcium 7.8, magnesium 1.8, albumin 3.1. ASSESSMENT AND PLAN: 1. Left subcapital femoral neck fracture, status post left hemiarthroplasty, postoperative day #1. He seems to be doing better. He is sitting at the bedside. Orthopedic Surgery on board. Will continue to monitor. I talked to the patient about finding a rehab center placement for him, but he will think about it. He will probably go home with home health. 2. Hypomagnesemia, resolved. 3. Hypokalemia. I will replace. 4. Hypertension. Continue with home medications. Stable. 5. Dyslipidemia. Continue with pravastatin. 6. History of scrotal cellulitis. Continue with antibiotics. It looks like he is on cephalexin 500 mg by mouth twice a day for life. I will continue with that upon discharge. 7. Deep vein thrombosis prophylaxis with Xarelto 10 mg on a daily basis. The patient denies chest pain, shortness of breath. Family members at the bedside. All the questions were answered. cc: Willian Church MD
[2019-04-28] MEDS: COLACE PO SCH (20:47)
[2019-04-28] MEDS: PRAVACHOL PO SCH (20:47)
[2019-04-29] MEDS: XARELTO PO SCH (05:26)
[2019-04-29] MEDS: TYLENOL PO SCH ×3 (05:26→21:23)
[2019-04-29 06:31] LABS: BASO# 0.02 X1000 (0.0-0.2); BASO% 0.2 % (0.0-0.8); EOS# 0.23 X1000 (0.0-0.7); EOS% 2.4 % (0.0-10.0); HEMATOCRIT 33.8 % (42.0-52.0); HEMOGLOBIN 10.9 g/dL (14.0-18.0); IMM GRAN# 0.03 X1000 (0.0-0.04); IMM GRAN% 0.3 % (0.0-0.5); LYMPH# 1.42 X1000 (1.2-3.4); LYMPH% 14.9 % (20.5-51.1); MCH 28.5 PG (27-31); MCHC 32.2 g/dL (33-37); MCV 88.3 FL (81-99); MONO# 0.59 X1000 (0.11-0.59); MONO% 6.2 % (1.7-9.3); MPV 10.6 FL (7.4-10.4); NEUT# 7.21 X1000 (1.4-6.5); PLT 171 X1000 (130-400); RBC 3.83 XMIL (4.7-6.1); RDW 14.1 % (11.5-14.5)
[2019-04-29 06:56] LABS: AGAP 11; ALB/GLOB RATIO 1.2; ALBUMIN 3.1 g/dL (3.5-5.0); ALKALINE PHOSPHATASE 64 U/L (32-122); BUN 9 mg/dL (8-22); CHLORIDE 101 mmol/L (98-107); COSMO 272; CREATININE 0.9 mg/dL (0.7-1.2); ESTIMATED GFR > 60; GLUCOSE 96 mg/dL (70-104); GOT 31 U/L (10-34); GPT 11 U/L (10-44); MAGNESIUM 1.8 mg/dL (1.5-2.7); POTASSIUM 3.7 mmol/L (3.5-5.1); SODIUM 137 mmol/L (136-145); TCO2 25 mmol/L (25-35); TOTAL BILIRUBIN 0.74 mg/dL (0.20-1.00); TOTAL PROTEIN 5.7 g/dL (6.3-8.3)
[2019-04-29] MEDS: MIRALAX PO SCH ×2 (08:29→21:24)
[2019-04-29] MEDS: FERROUS SULFATE PO SCH (08:29)
[2019-04-29] MEDS: VASOTEC PO SCH (08:29)
[2019-04-29] MEDS: SENOKOT PO SCH ×2 (08:29→21:24)
[2019-04-29] MEDS: KEFLEX PO SCH ×2 (08:29→21:23)
[2019-04-29] MEDS: HYDROCHLOROTHIAZIDE PO SCH (08:29)
[2019-04-29] MEDS: PERIDEX MT SCH ×2 (08:29→21:23)
--- NOTE | 2019-04-29 09:04 | ORTHOPAEDICS PROGRESS NOTE ---
DATE: 04/29/2019 SUBJECTIVE: The patient is a pleasant, 68-year-old male, who is 2 days status post hemiarthroplasty of the left hip. The patient rested well through the night, and has no complaints this morning. PHYSICAL EXAMINATION: His left lower extremity wound looks good. There are no signs or symptoms of infection. His calf is soft. He has active dorsiflexion and plantar flexion. LABORATORY DATA: His hemoglobin and hematocrit are 10.9 and 33.8. IMPRESSION: Postoperative day #2 status post hemiarthroplasty of the left hip. PLAN: At this point, will change his dressing. The patient will continue progressing with physical therapy, and [employer] has been consulted for discharge planning. cc: Elijah Shah MD
[2019-04-29] MEDS: DILAUDID IV PRN ×4 (12:17→22:09)
--- NOTE | 2019-04-29 16:29 | PROGRESS NOTE ---
DATE: 04/29/2019 SUBJECTIVE: The patient is resting comfortably in bed. No acute events noted overnight. OBJECTIVE: Vital Signs: Temperature 97.6 degrees, blood pressure 141/69, heart rate 79, respirations 18, O2 saturation 97% on room air. General: This is a chronically ill-appearing elderly male, lying in bed in no acute distress. Heart: S1, S2 normal. Regular rate and rhythm. Lungs: Equal air entry bilaterally. No wheezing. No rales. No rhonchi. Abdomen: Positive bowel sounds. Soft, nontender, nondistended. Extremities: No edema, no cyanosis, no calf tenderness. Neurologic: The patient is alert and oriented times four. LABS: White blood cell count 9.5, hemoglobin 10, hematocrit 33, platelets 171. BUN 9, creatinine 0.9, glucose 96, potassium 3.7. ASSESSMENT AND PLAN: 1. Status post left hip hemiarthroplasty. The patient is doing well. He is currently working with physical therapy. Further management as per the orthopedic surgeon. 2. Hypertension. Controlled. Continue on the current antihypertensive regimen. 3. Anemia. Stable. 4. Disposition: The patient states that he plans to go home with home health once cleared by the orthopedic surgeon. cc: Mindy Angulo MD
[2019-04-29] MEDS: COLACE PO SCH (21:23)
[2019-04-29] MEDS: PRAVACHOL PO SCH (21:23)
[2019-04-30] MEDS: DILAUDID IV PRN ×2 (01:02→13:07)
[2019-04-30] MEDS: OXY IR PO PRN ×3 (04:08→11:41)
[2019-04-30] MEDS: XARELTO PO SCH (05:02)
[2019-04-30] MEDS: TYLENOL PO SCH (05:02)
--- NOTE | 2019-04-30 06:35 | ORTHOPAEDICS PROGRESS NOTE ---
DATE: 04/30/2019 SUBJECTIVE: The patient is a pleasant 68-year-old male who is 3 days status post hemiarthroplasty of the left hip. He is currently resting comfortably. The patient does have some expected discomfort. PHYSICAL EXAMINATION: Patient's left lower extremity dressing is intact. His calf is soft. He has active dorsiflexion plantar flexion. LABORATORY: Labs pending. His hemoglobin and hematocrit from yesterday was 10.9 and 33.8. IMPRESSION: Postoperative day #3 status post hemiarthroplasty left hip. Patient was encouraged to continue progress with physical therapy. Weight bear as tolerated left lower extremity. The patient is planning on being discharged to home and will undergo outpatient physical therapy. We will encourage him to continue progressing with physical therapy. All questions were answered. cc: Elijah Shah MD
[2019-04-30 06:38] LABS: BASO# 0.02 X1000 (0.0-0.2); BASO% 0.3 % (0.0-0.8); EOS# 0.23 X1000 (0.0-0.7); EOS% 3.3 % (0.0-10.0); HEMATOCRIT 32.5 % (42.0-52.0); HEMOGLOBIN 10.6 g/dL (14.0-18.0); IMM GRAN# 0.02 X1000 (0.0-0.04); IMM GRAN% 0.3 % (0.0-0.5); LYMPH# 2.05 X1000 (1.2-3.4); LYMPH% 29.2 % (20.5-51.1); MCH 28.7 PG (27-31); MCHC 32.6 g/dL (33-37); MCV 88.1 FL (81-99); MONO# 0.58 X1000 (0.11-0.59); MONO% 8.3 % (1.7-9.3); MPV 10.4 FL (7.4-10.4); NEUT# 4.13 X1000 (1.4-6.5); NEUT% 58.6 % (42.2-75.2); PLT 199 X1000 (130-400); RBC 3.69 XMIL (4.7-6.1); RDW 14.3 % (11.5-14.5); WBC 7.03 X1000 (4.8-10.8)
[2019-04-30 06:56] LABS: AGAP 12; ALB/GLOB RATIO 0.8; ALBUMIN 2.8 g/dL (3.5-5.0); ALKALINE PHOSPHATASE 76 U/L (32-122); BUN 11 mg/dL (8-22); CALCIUM 8.2 mg/dL (8.8-10.2); CHLORIDE 97 mmol/L (98-107); COSMO 268; CREATININE 0.8 mg/dL (0.7-1.2); ESTIMATED GFR > 60; GLUCOSE 98 mg/dL (70-104); GOT 25 U/L (10-34); GPT 12 U/L (10-44); MAGNESIUM 1.6 mg/dL (1.5-2.7); POTASSIUM 3.5 mmol/L (3.5-5.1); SODIUM 134 mmol/L (136-145); TCO2 25 mmol/L (25-35); TOTAL BILIRUBIN 0.64 mg/dL (0.20-1.00); TOTAL PROTEIN 6.5 g/dL (6.3-8.3)
[2019-04-30] MEDS: HYDROCHLOROTHIAZIDE PO SCH (08:51)
[2019-04-30] MEDS: SENOKOT PO SCH (08:51)
[2019-04-30] MEDS: VASOTEC PO SCH (08:51)
[2019-04-30] MEDS: KEFLEX PO SCH (08:52)
[2019-04-30] MEDS: FERROUS SULFATE PO SCH (08:52)
[2019-04-30] MEDS: PERIDEX MT SCH (08:53)
[2019-04-30] MEDS: MIRALAX PO SCH (08:53)
[2019-04-30 11:48] VITALS: BP 121/59
--- NOTE | 2019-05-02 19:10 | DISCHARGE SUMMARY ---
ADMISSION DATE: 04/26/2019 DISCHARGE DATE: 04/30/2019 FINAL DISCHARGE DIAGNOSES: 1. Status post left hip hemiarthroplasty. 2. Hypertension. 3. Anemia. 4. Hyperlipidemia. CONSULTATIONS: Orthopedic consultation with Dr. Shah. PROCEDURES: Hemiarthroplasty of the left hip performed on 04/27/2019. HOSPITAL COURSE: Mr. Kuo is a 68-year-old male with a history of hypertension who presented to the ER with left hip pain following a fall. While in the ER a hip and pelvic x-ray was performed that revealed a displaced subcapital left femoral neck fracture. The pelvic CT confirmed this finding. The patient was admitted to the hospitalist service and Dr. Shah with orthopedic surgery was consulted. The patient was taken to the OR on 04/27/2019 at which time a hemiarthroplasty of the left hip was performed. The patient did well postoperatively. Physical therapy was consulted to help mobilize the patient. The patient decided that he was not interested in going to inpatient rehabilitation and instead wanted to be sent home with home health services and have physical therapy as outpatient. The patient continued to improve clinically and was ultimately cleared for discharge home on 04/30/2019. DISCHARGE MEDICATIONS: 1. Colace 200 mg p.o. at bedtime. 2. MiraLAX 17 g oral twice a day. 3. Xarelto 10 mg p.o. daily for 20 days. 4. Senokot 1 tab oral twice a day p.r.n. for constipation. 5. Percocet 5/325 one tab oral every 6 hours p.r.n. for pain. 6. Pravastatin 20 mg p.o. at bedtime. 7. Keflex 500 mg p.o. twice a day. 8. Enalapril/hydrochlorothiazide 1 tab oral daily. DISCHARGE DIET: Low-sodium diet. ACTIVITY: As tolerated. FOLLOWUP INSTRUCTIONS: The patient will need to follow up with Dr. Shah on 05/11/2019. cc: Mindy Angulo MD
== END 2019-04-30 15:47 | disposition home or self-care (01) | DRG 470 ==
LOC: SUPCPDRO → ED 12:07 → SUATTDRO 16:57 → 4N 16:57
PROVIDERS: ATTEND Internal Medicine